=== PATIENT | male | born 1985 | race Caucasian/White ===

== ENCOUNTER 2018-07-17 08:23 | Emergency (ER) | payer SELFPAY ==
[~2018-07-17] VITALS: Ht 180.3 cm; Wt 80.0 kg
[~2018-07-17 08:23] MED LIST: HYDR1TAB13 PO; OMEP20CA9 PO; ONDA4TAB13 SL; OXYC5TAB3 PO
[2018-07-17 08:32] VITALS: BP 119/79
== END 2018-07-17 10:39 | disposition left against medical advice (07) ==
LOC: ED 10:33
DX: R50.9 Fever, unspecified (principal); Z53.21 Procedure and treatment not carried out due to patient leaving prior to being seen by health care provider